=== PATIENT | female | born 1955 | race Caucasian/White ===

== ENCOUNTER 2024-08-18 16:18 | Emergency (ER) | payer MEDICARE, OTHER, SELFPAY ==
[2024-08-18 16:29] VITALS: BP 159/116; PULSE 72; RESP 16; TEMP 36.6; O2SAT 97; BMI 26.2
--- NOTE | 2024-08-18 16:44 | XRR_ITS ---
PROCEDURE INFORMATION: Exam: XR Left Shoulder Exam date and time: 08/18/2024 5:02 PM Age: 68 years old Clinical indication: Pain; Shoulder; Left; Additional info: Left shoulder pain with no acute injury, patient states she heard it pop multiple times in last 2 days TECHNIQUE: Imaging protocol: Radiologic exam of the left shoulder. Views: 2 or more views. COMPARISON: No relevant prior studies available. FINDINGS: Bones/joints: No acute displaced fracture or dislocation. Soft tissues: Normal. XR/XR shoulder LT min 2V* [id number] IMPRESSION: No acute displaced fracture or dislocation.
--- NOTE | 2024-08-18 17:13 | ED_ITS ---
HPI - Extremity Problem General: Chief complaint: Extremity Injury, Upper Stated complaint: left shoulder pain Time Seen by Provider: 08/18/24 16:59 History of Present Illness: Six 8-year-old female presents emergency room complaining of left shoulder pain. Couple weeks ago she was carrying some groceries felt a popping sensation yesterday while she had her arm flexed at the shoulder while driving a car she felt another popping sensation additionally states she was hit with a basketball in the anterior part of the shoulder now she has difficulty with range of motion particularly with abduction and internal and external rotation. No previous surgeries for her shoulder. No known injury to the shoulder previously Associated symptoms: Deny chest pain or fever(s) Related Data Previous Rx's ?Medication ?Instructions ?Recorded methylprednisolone 4 mg tablets in See Rx Instructions PO .COMPLEX 08/18/24 a dose pack (Medrol (Nick)) #21 ea tramadol 50 mg tablet 50 mg PO Q6H PRN pain #20 ta bs 08/18/24 Allergies Allergy/AdvReac Type Severity Reaction Status Date / Time Penicillins Allergy Unknown Verified 08/18/24 16:34 Tetracyclines Allergy ADR-Nausea Verified 08/18/24 16:34 Review of Systems Const: Denies: fever(s) or chills Card: Denies: chest pain Resp: Denies: dyspnea Musc: Denies: neck pain or back pain Physical Exam Const: COMMON NORMALS: no acute distress GENERAL APPEARANCE: cooperative and comfortable ORIENTATION/CONSCIOUSNESS: Yes awake, Yes oriented to person, Yes oriented to place and Yes oriented to time HENMT: COMMON NORMALS: normocephalic, atraumatic and hearing grossly normal bilaterally HEAD & SCALP: normocephalic and atraumatic Resp: COMMON NORMALS: normal respiratory effort, No retractions, No use of accessory muscles and clear to auscultation bilaterally AUSCULTATION: clear to auscultation bilaterally Cardio: COMMON NORMALS: regular rate, regular rhythm and No murmurs present (Cardio) RATE: regular rate RHYTHM: regular rhythm Extremity: OTHER: On exam patient has pain with abduction but is able to AB duct independently. Significant discomfort with internal extra rotation. No pain with palpation of the bicep tendon groove neurovascular the left arm is fully intact Neuro: SENSORIUM/ORIENTATION: Yes oriented to person, Yes oriented to place and Yes oriented to time Skin: COMMON NORMALS: no rashes or lesions noted GENERAL SKIN EXAM: no rashes or lesions noted Course Vital Signs: Vital signs: Vital Signs Temperature 98 F 08/18/24 16:29 Pulse Rate 73 08/18/24 17:32 Respiratory Rate 16 08/18/24 16:29 Blood Pressure 160/80 08/18/24 17:32 Pulse Oximetry 97 08/18/24 17:32 MDM - Extremity (Nontraumatic) Medical Decision Making Suspect patient has rotator cuff tendinitis or possibly bursitis x-rays not show any acute fractures. Will discharge patient home steroid taper arm sling follow-up with the orthopedic clinic avoid any work above shoulder level or with shoulder extended. XR interpretation done by ED provider, pending radiology final review ED provider radiology interpretation(s): Left shoulder no acute fracture mild arthritic changes no evidence of dislocation. Discharge Plan Discharge Patient Disposition: Home Clinical Impression: Sprain of left shoulder Condition: Stable Prescriptions: New methylprednisolone [Medrol (Nick)] 4 mg tablets,dose pack See Rx Instructions .ROUTE .COMPLEX Qty: 21 0RF Rx Instructions: orally per package directions tramadol 50 mg tablet 50 mg PO Q6H PRN (Reason: pain) Qty: 20 0RF Discharge Orders: Discharge ED (Routine); Ordered 08/18/24 Ordered By: Ricardo Garcia Discharge Diet: Usual diet Discharge Activity: Limit activity as instructed Patient Instructions: Shoulder Sprain (ED), Opioid Safety, Pain Management Activity Restrictions/Additional Instructions: Thank you for choosing [facility] for your healthcare needs today. It is very important that you follow up as instructed or [facility] have concerns or if your condition changes or worsens in any way. You are seen in the emergency room close left shoulder pain x-rays not show any acute fractures based on your exam and your history suspect you have irritation to the rotator cuff some of it may be rotator cuff bursitis. Will discharge you home with an arm sling recommend you not use the left arm above shoulder level or at full extension. Case management make arrangements for you to follow-up with orthopedics. 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
[2024-08-18 17:23] VITALS: BP 160/80; PULSE 73; O2SAT 98
[2024-08-18 17:32] VITALS: BP 160/80; PULSE 73; O2SAT 97
[2024-08-18 17:39] VITALS: BP 114/85; PULSE 82; RESP 16; O2SAT 98
== END 2024-08-18 17:40 | disposition home or self-care (01) ==
PROVIDERS: Emergency Provider Family Medicine
DX: S43.402A Unspecified sprain of left shoulder joint, initial encounter (principal); X58.XXXA Exposure to other specified factors, initial encounter
CPT/HCPCS: 73030; 99283

== ENCOUNTER 2024-12-09 09:44 | Outpatient (CLI) | payer MEDICARE, OTHER, SELFPAY ==
--- NOTE | 2024-12-09 09:52 | MM_ITS ---
WS: [id number] BILATERAL 3D TOMOSYNTHESIS DIGITAL SCREENING MAMMOGRAPHY WITH CAD CLINICAL INFORMATION: SCREENING HISTORY: Screening mammogram. No current complaints. COMPARISON: None. TECHNIQUE: Bilateral CC and MLO views. FINDINGS: Scattered fibroglandular densities bilaterally. No suspicious focal mass, asymmetry, calcifications, or architectural distortion. No evidence of malignancy. A few incidental punctate calcifications. MM/MM scr tomosynthesis [id number] IMPRESSION: DENSITY: There are scattered areas of fibroglandular density. BI-RADS: 2 - Benign. FOLLOW UP: 1 Year Follow-up Recommend return to annual screening mammography.
== END 2024-12-09 09:45 | disposition home or self-care (01) ==
LOC: RAD 09:45
PROVIDERS: Visit Provider Family Medicine
DX: Z12.31 Encounter for screening mammogram for malignant neoplasm of breast (principal); R92.323 Mammographic fibroglandular density, bilateral breasts; R92.1 Mammographic calcification found on diagnostic imaging of breast
CPT/HCPCS: 77063; 77067